=== PATIENT | male | born 1990 | race African-American/Black ===

== ENCOUNTER 2016-04-28 14:51 | Emergency (ER) | payer OTHER ==
[~2016-04-28 14:51] MED LIST: AMOXIL500 M1 PO; BACTRIM 400-801 TA1 PO; BACTRIM DS TABL1 TA1 PO; CORTISPORIN-TC10 ML OT; DEXTROMETHORPHAN PO; FLEXERIL10 M1 PO; FLEXERIL10 MG PO; IBUPROFEN800 MG PO; KEFLEX PO; NAPROSYN500 MG PO; NO MEDICATIONS; ORUDIS75 M1 DOB; PROMETHAZINE PO; VICODIN 5/500 T1 TAB PO
[2016-04-28 15:08] LABS: INFLUENZA A NEG (NEG); INFLUENZA B NEG (NEG)
[2016-04-28] MEDS ORDERED: ASPIRIN81 MG PO (15:12)
[2016-04-28] MEDS ORDERED: DULOXETINE HCL60 MG PO (15:13)
[2016-04-28] MEDS ORDERED: PERIACTIN4 M1 PO (15:13)
[2016-04-28] MEDS ORDERED: FEROSUL325 ( 651 PO (15:14)
[2016-04-28] MEDS ORDERED: LORTAB 5-325 M1 EACH PO (15:15)
[2016-04-28] MEDS ORDERED: NEURONTIN600 MG PO (15:15)
[2016-04-28] MEDS ORDERED: SEROQUEL25 MG PO (15:16)
[2016-04-28] MEDS ORDERED: PRINIVIL20 M1 PO (15:17)
[2016-04-28] MEDS ORDERED: LEVOTHYROXINE100 MC1 PO (15:17)
[2016-04-28] MEDS ORDERED: OMEPRAZOLE40 M1 PO (15:18)
[2016-04-28] MEDS ORDERED: GLUCOPHAGE500 M1 PO (15:18)
[2016-04-28] MEDS ORDERED: MINOCIN50 MG PO (15:18)
[2016-04-28] MEDS ORDERED: SIMVASTATIN20 MG PO (15:19)
[2016-04-28] MEDS ORDERED: DITROPAN PO (15:19)
== END 2016-04-28 15:15 | disposition home or self-care (01) ==
LOC: CFTX 14:51
PROVIDERS: Physician Assistant
DX: J02.0 Streptococcal pharyngitis (principal); F41.9 Anxiety disorder, unspecified
CPT/HCPCS: 87804; 87880; 96372; 99283; J0561